=== PATIENT | male | born 1960 | race Caucasian/White ===

== ENCOUNTER 2020-04-05 21:01 | Emergency (ER) | payer BC ==
[2020-04-05] MEDS ORDERED: FAMOTIDINE 20 MG/2 ML VIAL IV STA (21:21)
[2020-04-05] MEDS ORDERED: ONDANSETRON 4 MG/2 ML VIAL IVP STA (21:21)
[2020-04-05] MEDS ORDERED: SODIUM CHLORIDE 0.9% 1,000 ML IV STA (21:21)
--- NOTE | 2020-04-05 21:21 | ED ---
Abdominal Pain HPI - General Chief Complaint: Abdominal Pain Stated Complaint: abd pain Time Seen by Provider: 04/05/20 21:08 Source: patient Mode of arrival: ambulatory Limitations: no limitations - History of Present Illness Initial Comments: 59-year-old male presents to emergency department with a chief complaint of abdominal pain. States this occurred about 4 hours prior to arrival while he was resting. Patient reports diffuse abdominal pain that is sharp, constant and 8/10.he reports having some nausea but no vomiting constipation or diarrhea. Reports the pain is exacerbated when he is moving a different position. denies any chest pain or shortness of breath. States the pain radiates to his bilateral flank regions.denies any back pain, chest pain or shortness of breath. Denies hematuria, hematochezia or melena. Denies any testicular swelling, tenderness, penile discharge.does report history of an upper laparoscopic appendectomywith postop complications and the ventral hernia that was repaired with another surgery. - Related Data Home Medications Medication Instructions Recorded Confirmed Eslicarbazepine Acetate [Aptiom] 600 mg PO DAILY 04/05/20 04/05/20 Lisinopril [Prinivil] 10 mg PO DAILY 04/05/20 04/05/20 Multivitamins, Thera [Multivitamin 1 tab PO DAILY 04/05/20 04/05/20 (formulary)] Venlafaxine HCl ER [Effexor Xr] 75 mg PO DAILY 04/05/20 04/05/20 lamoTRIgine [lamoTRIgine ER] 400 mg PO DAILY 04/05/20 04/05/20 Allergies Allergy/AdvReac Type Severity Reaction Status Date / Time No Known Allergies Allergy Verified 04/05/20 22:11 Review of Systems ROS Statement: Those systems with pertinent positive or pertinent negative responses have been documented in the HPI. ROS Other: All systems not noted in ROS Statement are negative. Past Medical History Past Medical History: Hypertension, Seizure Disorder History of Any Multi-Drug Resistant Organisms: None Reported Past Surgical History: Appendectomy, Hernia Repair Additional Past Surgical History / Comment(s): mesh to abd after hernia repair Past Psychological History: Depression Smoking Status: Never smoker Past Alcohol Use History: None Reported Past Drug Use History: None Reported General Exam Limitations: no limitations General appearance: alert, in no apparent distress Head exam: Present: atraumatic, normocephalic, normal inspection Eye exam: Present: normal appearance, PERRL, EOMI Pupils: Present: normal accommodation ENT exam: Present: normal exam, normal oropharynx, mucous membranes moist Neck exam: Present: normal inspection, full ROM. Absent: tenderness Respiratory exam: Present: normal lung sounds bilaterally. Absent: respiratory distress Cardiovascular Exam: Present: regular rate, normal rhythm, normal heart sounds GI/Abdominal exam: Present: soft, tenderness (moderate diffuse abdominal tenderness). Absent: distended Extremities exam: Present: normal inspection, full ROM, normal capillary refill, other (palpable DP and PT bilaterally.). Absent: tenderness, pedal edema, joint swelling, calf tenderness Back exam: Present: normal inspection, full ROM. Absent: tenderness, CVA tenderness (R), CVA tenderness (L) Neurological exam: Present: alert, oriented X3 Psychiatric exam: Present: normal affect, normal mood Skin exam: Present: warm, dry, intact, normal color Course Vital Signs 04/05/20 04/05/20 21:02 22:55 Temperature 98 F 98.5 F Pulse Rate 68 64 Respiratory 18 16 Rate Blood Pressure 169/88 147/84 O2 Sat by Pulse 99 95 Oximetry Medical Decision Making - Medical Decision Making 59-year-old male presents emergency chief complaint of abdominal pain. On physical examination, , patient had moderate, diffuse abdominal tenderness. Breast exam was unremarkable. Patient is given IV fluids, antiemetics and morphine. CBC unremarkable. CMP reveals hypernatremia 129. UA unremarkable. CT abdomen and pelvis reveals no acute findings. On reevaluation patient reports complete resolution of symptoms. States he is able to move in any position without any pain or discomfort. States he feels comfortable going home and following up with the PCP. Return parameters discussed with patient was understanding and agreeable. Case discussed with Dr. lynn - Lab Data Result diagrams: 04/05/20 21:44 04/05/20 21:44 Lab Results 04/05/20 04/05/20 04/05/20 Range/Units 21:44 21:44 22:55 WBC 7.9 (3.8-10.6) k/uL RBC 4.73 (4.30-5.90) m/uL Hgb 15.4 (13.0-17.5) gm/dL Hct 43.4 (39.0-53.0) % MCV 91.7 (80.0-100.0) fL MCH 32.6 (25.0-35.0) pg MCHC 35.6 (31.0-37.0) g/dL RDW 12.1 (11.5-15.5) % Plt Count 230 (150-450) k/uL MPV 6.1 Neutrophils % 79 % Lymphocytes % 12 % Monocytes % 5 % Eosinophils % 2 % Basophils % 1 % Neutrophils # 6.2 (1.3-7.7) k/uL Lymphocytes # 0.9 L (1.0-4.8) k/uL Monocytes # 0.4 (0-1.0) k/uL Eosinophils # 0.2 (0-0.7) k/uL Basophils # 0.0 (0-0.2) k/uL Sodium 129 L (137-145) mmol/L Potassium 3.6 (3.5-5.1) mmol/L Chloride 96 L (98-107) mmol/L Carbon Dioxide 26 (22-30) mmol/L Anion Gap 7 mmol/L BUN 14 (9-20) mg/dL Creatinine 0.62 L (0.66-1.25) mg/dL Est GFR (CKD-EPI)AfAm >90 (>60 ml/min/1.73 sqM) Est GFR (CKD-EPI)NonAf >90 (>60 ml/min/1.73 sqM) Glucose 123 H (74-99) mg/dL Calcium 9.3 (8.4-10.2) mg/dL Total Bilirubin 0.5 (0.2-1.3) mg/dL AST 23 (17-59) U/L ALT 24 (4-49) U/L Alkaline Phosphatase 75 (38-126) U/L Total Protein 7.1 (6.3-8.2) g/dL Albumin 4.2 (3.5-5.0) g/dL Lipase 71 (23-300) U/L Urine Color Light Yellow Urine Appearance Clear (Clear) Urine pH 7.5 (5.0-8.0) Ur Specific [place] 1.018 (1.001-1.035) Urine Protein Negative (Negative) Urine Glucose (UA) Negative (Negative) Urine Ketones Negative (Negative) Urine Blood Negative (Negative) Urine Nitrite Negative (Negative) Urine Bilirubin Negative (Negative) Urine Urobilinogen <2.0 (<2.0) mg/dL Ur Leukocyte Esterase Negative (Negative) Disposition Clinical Impression: Abdominal pain Disposition: HOME SELF-CARE Condition: Stable Instructions (If sedation given, give patient instructions): Abdominal Pain ( ED) Additional Instructions: follow-up with the PCP. Return to emergency department if symptoms worsen. Is patient prescribed a controlled substance at d/c from ED?: No Referrals: Jass Oropeza DO [Primary Care Provider] - 1-2 days Time of Disposition: 23:17
[2020-04-05] MEDS ORDERED: MORPHINE SULFATE 4 MG/ML SYRINGE IVP STA (21:35)
[2020-04-05 21:48] LABS: Basophils % (A) 1 %; Eosinophils # (A) 0.2 k/uL (0-0.7); Eosinophils % (A) 2 %; HCT 43.4 % (39.0-53.0); HGB 15.4 gm/dL (13.0-17.5); Lymphocytes # (A) 0.9 k/uL (1.0-4.8); Lymphocytes % (A) 12 %; MCH 32.6 pg (25.0-35.0); MCHC 35.6 g/dL (31.0-37.0); MCV 91.7 fL (80.0-100.0); Mean Platelet Volume 6.1; Monocytes # (A) 0.4 k/uL (0-1.0); Monocytes % (A) 5 %; Neutrophils # (A) 6.2 k/uL (1.3-7.7); Neutrophils % (A) 79 %; Platelet Count 230 k/uL (150-450); RBC 4.73 m/uL (4.30-5.90); RDW 12.1 % (11.5-15.5); WBC 7.9 k/uL (3.8-10.6)
[2020-04-05 21:56] LABS: Potassium 3.6 mmol/L (3.5-5.1)
[2020-04-05 21:57] LABS: ALT 24 U/L (4-49); AST 23 U/L (17-59); African American GFR (CKD) >90 (>60 ml/min/1.73 sqM); Albumin 4.2 g/dL (3.5-5.0); Alkaline Phosphatase 75 U/L (38-126); Anion Gap 7 mmol/L; Blood Urea Nitrogen 14 mg/dL (9-20); Calcium 9.3 mg/dL (8.4-10.2); Carbon Dioxide 26 mmol/L (22-30); Chloride 96 mmol/L (98-107); Glucose 123 mg/dL (74-99); Lipase 71 U/L (23-300); Non-African American GFR(CKD) >90 (>60 ml/min/1.73 sqM); Sodium 129 mmol/L (137-145); Total Bilirubin 0.5 mg/dL (0.2-1.3); Total Protein 7.1 g/dL (6.3-8.2)
--- NOTE | 2020-04-05 23:00 | CT ---
EXAMINATION TYPE: CT abdomen pelvis w con DATE OF EXAM: 04/05/2020 COMPARISON: None HISTORY: Acute abdominal pain, non-localized CT DLP: 987.8 mGycm Automated exposure control for dose reduction was used. CONTRAST: Performed with IV Contrast, patient injected with 100 mL of Isovue 300. Lung bases are clear. There is no pleural effusion. Heart size is normal. There is no pericardial eff usion. There are calcified multiple gallstones. Liver shows no focal defect. There are small calcified splen ic granulomata. There is no evidence of a splenic mass. Stomach is intact. There is no pancreatic mas s. There is no adrenal mass. Kidneys show satisfactory contrast opacification. There is no hydronephrosi s. Ureters are not dilated. Bladder distends smoothly. There is no inguinal hernia. There is no free fluid in the pelvis. There is some mild fat stranding around the cecum. There are multiple anterior clips apparently from hernia surgery. The appendix is not seen. This possible clips from appendectomy. There is no mesenteric edema. There is no ascites or free air. There is no sign of a bowel obstructio n. The lumbar vertebra have normal alignment. Disc spaces are fairly normal. There is no compression fra cture. Bony pelvis is intact. The hip joints are intact. IMPRESSION: There is very minimal fat stranding lateral to the cecum of uncertain significance. Appendix not seen . There appears to BE clips from appendectomy. Cholelithiasis. No dilated ducts.
[2020-04-05 23:07] VITALS: BP 147/84; PULSE 64; RESP 16; TEMP 98.5
[2020-04-05 23:09] LABS: Appearance,Urine Clear (Clear); Bilirubin,Urine Negative (Negative); Blood,Urine Negative (Negative); Color,Urine Light Yellow; Glucose,Urine (UA) Negative (Negative); Ketones,Urine Negative (Negative); Leukocyte Esterase,Urine Negative (Negative); Nitrite,Urine Negative (Negative); PH, Urine 7.5 (5.0-8.0); Protein,Urine Negative (Negative); Specific Gravity,Urine 1.018 (1.001-1.035); Urobilinogen,Urine <2.0 mg/dL (<2.0)
== END 2020-04-05 23:35 | disposition home or self-care (01) ==
LOC: EC 21:01
DX: R10.819 Abdominal tenderness, unspecified site (principal); E87.0 Hyperosmolality and hypernatremia; F32.9 Major depressive disorder, single episode, unspecified; I10 Essential (primary) hypertension; G40.909 Epilepsy, unspecified, not intractable, without status epilepticus; Z79.899 Other long term (current) drug therapy; Z90.49 Acquired absence of other specified parts of digestive tract
CPT/HCPCS: 36415; 93005; 80053; 83690; 85025; 81003; 74177; 99284; 96374; 96375 ×2; 96361; J2270; J2405; Q9967

== ENCOUNTER → 2020-04-27 | Outpatient (CLI) | payer BC ==
--- NOTE | 2020-04-27 09:31 | NM ---
EXAMINATION TYPE: NM hepatobiliary wo EF DATE OF EXAM: 04/27/2020 COMPARISON: Correlation CT 04/05/2020 HISTORY: 59-year-old male R10.11, right upper quadrant pain. TECHNIQUE: After the intravenous administration of 5.3 mCi Tc 99m Mebrofenin hepatobiliary scintigrap hy is performed. Immediate images post injection. FINDINGS: There is satisfactory initial uptake of tracer by the liver. Gallbladder becomes visualized at 8 bossman raimundo. Small bowel becomes visualized at 18 minutes. The exam was ordered without ejection fraction. IMPRESSION: 1. No scintigraphic evidence for acute cholecystitis. 2. Further clinical correlation for any suspected chronic cholecystitis given the stones on the 021 CT.
== END ==
LOC: RADNMMAIN 07:03
PROVIDERS: ATTEND Family Medicine
DX: R10.11 Right upper quadrant pain (principal)
CPT/HCPCS: 78226; A9537

== ENCOUNTER 2020-05-22 07:16 | Day surgery (SDC) | payer BC ==
[2020-05-21 13:40] VITALS: BMI 26.5
[~2020-05-22 07:16] MED LIST: ACETAMINOPHEN TAB 500 MG TAB PO PRN; DEXAMETHASONE SOD PHOSPHATE 4 MG/ML 1 ML VIAL IV ONE; HEPARIN SODIUM,PORCINE 5,000 UNIT/ML 1 ML VIAL SQ PRN; HYDROmorphone 0.5 MG/0.5 ML SYRINGE IVP PRN; MIDAZOLAM 2 MG/2 ML VIAL IV PRN; ONDANSETRON 4 MG/2 ML VIAL IVP ONE; SCOPOLAMINE 1.5MG/72HR PATCH TRANSDERM ONE
[2020-05-22] MEDS: LACTATED RINGERS 1,000 ML IV SCH ×2 (07:36→08:04)
--- NOTE | 2020-05-22 08:35 | P.GSHP ---
History of Present Illness H&P Date: 05/22/20 Chief Complaint: Right upper quadrant pain Is a 59-year-old male who presents today for laparoscopic cholecystectomy. Patient has had complaints of right quadrant pain. He is found have cholelithiasis. 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, does not use cpap, headaches History of Any Multi-Drug Resistant Organisms: None Reported Past Surgical History: Appendectomy, Hernia Repair Additional Past Surgical History / Comment(s): open abd sx after appendectomy r/t infection, mesh to abd after incisional hernia repair Past Anesthesia/Blood Transfusion Reactions: No Reported Reaction Smoking Status: Never smoker Medications and Allergies Home Medications Medication Instructions Recorded Confirmed Type Eslicarbazepine Acetate [Aptiom] 600 mg PO QAM 04/05/20 05/22/20 History Lisinopril [Prinivil] 10 mg PO QAM 04/05/20 05/22/20 History Multivitamins, Thera [Multivitamin 1 tab PO DAILY 04/05/20 05/22/20 History (formulary)] Venlafaxine HCl ER [Effexor Xr] 75 mg PO QAM 04/05/20 05/22/20 History lamoTRIgine [lamoTRIgine ER] 400 mg PO QAM 04/05/20 05/22/20 History Allergies Allergy/AdvReac Type Severity Reaction Status Date / Time No Known Allergies Allergy Verified 05/22/20 07:42 Surgical - Exam - General well developed, well nourished, no distress - Eyes PERRL - ENT normal pinna - Neck no masses - Respiratory normal expansion - Cardiovascular Rhythm: regular - Abdomen Mild right quadrant pain Abdomen: soft Assessment and Plan Assessment: Right upper quadrant pain Cholelithiasis We'll perform laparoscopic cholecystectomy
[2020-05-22] MEDS ORDERED: GLYCOPYRROLATE 0.2 MG/ML 2 ML VIAL ONE (08:40)
[2020-05-22] MEDS ORDERED: MIDAZOLAM 2 MG/2 ML VIAL ONE (08:40)
[2020-05-22] MEDS ORDERED: fentaNYL (PF) 50 MCG/ML 2 ML AMP ONE (08:40)
[2020-05-22] MEDS ORDERED: KETOROLAC 15 MG/ML 1 ML VIAL ONE (08:40)
[2020-05-22] MEDS ORDERED: LIDOCAINE 1% INJ 10MG/ML (20 ML MDV) ONE (08:40)
[2020-05-22] MEDS ORDERED: PROPOFOL 10 MG/ML 20 ML VIAL IV ONE (08:40)
[2020-05-22] MEDS ORDERED: NEOSTIGMINE 1 MG/ML 10 ML VIAL ONE (08:40)
[2020-05-22] MEDS ORDERED: SUCCINYLCHOLINE CHLORIDE 100 MG/5 ML SYR IV ONE (08:40)
[2020-05-22] MEDS ORDERED: ROCURONIUM 10 MG/ML (5 ML VIAL) IV ONE (08:40)
[2020-05-22] MEDS ORDERED: ePHEDrine SULFATE/0.9% NACL/PF 50 MG/5 ML SYRINGE IV ONE (08:40)
[2020-05-22] MEDS ORDERED: BUPIVACAINE (PF) 0.25% 30 ML VIAL SQ ONE (09:02)
--- NOTE | 2020-05-22 09:44 | P.OP ---
Date of Procedure: 05/22/20 Preoperative Diagnosis: Cholelithiasis Cholecystitis Postoperative Diagnosis: Cholelithiasis Cholecystitis Procedure(s) Performed: Laparoscopic cholecystectomy Laparoscopic lysis of adhesions Anesthesia: STEPHANIE Surgeon: Dav Mcneill Estimated Blood Loss (ml): 10 Pathology: other (Gallbladder) Condition: stable Disposition: PACU Description of Procedure: The patient was placed on the operating table. The patient received a general endotracheal tube anesthesia. The patients abdomen was prepped and draped in the usual sterile fashion. The patient had a large midline scar with previous incisional hernia repair. Due to the risk of adhesions and midline and a Veress needles placed in the left upper quadrant. The abdomen was insufflated. Then a 5 mm blade less trocar was placed into the pleural cavity. There are extensive adhesions along the midline. Next a 5 mm optical trochars placed in the right lateral position and then a 8 mm trochars placed in the epigastric position and then a another 5 mm trochars placed in the right mid abdomen position. And then a 5 mm trocar was placed in the supraumbilical position. There were some adhesions location. Which were lysed with sharp dissection prior to placing trocar. . The gallbladder was grasped in the fundus and infundibulum. Traction on the gallbladder was placed in the lateral and the cephalad positions. The triangle of [place] was visualized.. The cystic duct was bluntly dissected until the union of the cystic duct and common bile duct was seen. A critical view of safety was achieved. The cystic duct was then ligated using 2-0 Ethibond a timeout device.. The cystic duct was then divided and sealed with the Harmonic scissors. . The cystic artery divided and sealed with the Harmonic scissors. The gallbladder was then removed from the liver bed using Harmonic scissors. The gallbladder was then extracted through the epigastric port site. Operative field was checked for any bleeding spots and Harmonic scissors was used to coagulate the liver bed. The abdomen was irrigated. The trocars were removed. The skin was closed using interrupted 3-0 Vicryl suture. Dermabond dressing were applied. The patient tolerated the procedure well.
[2020-05-22 09:48] VITALS: TEMP 97.3
[2020-05-22 10:04] VITALS: RESP 18
[2020-05-22] MEDS ORDERED: LACTATED RINGERS 1,000 ML IV ONE ×2 (10:39)
[2020-05-22 11:01] VITALS: BP 132/66; PULSE 55
== END 2020-05-22 11:43 | disposition home or self-care (01) ==
LOC: OR 07:16
PROVIDERS: ATTEND Surgery
DX: K80.10 Calculus of gallbladder with chronic cholecystitis without obstruction (principal); I10 Essential (primary) hypertension; G40.909 Epilepsy, unspecified, not intractable, without status epilepticus; G47.30 Sleep apnea, unspecified; Z90.89 Acquired absence of other organs; Z98.890 Other specified postprocedural states; Z99.89 Dependence on other enabling machines and devices; F32.9 Major depressive disorder, single episode, unspecified; Z79.899 Other long term (current) drug therapy
CPT/HCPCS: 88304; 47562; J2250; J1644; J1100; J2710; J0690; J2405; J2001; J3010; J1885; J0330; J2704